=== PATIENT | female | born 1965 | race Caucasian/White ===

== ENCOUNTER → 2023-11-28 12:11 | Outpatient (REF) | payer BC, SELFPAY | LOC: WDC 12:11 | PROVIDERS: ATTENDING PHYSICIAN Nurse Practitioner Adult Health | DX: Z12.31 Encounter for screening mammogram for malignant neoplasm of breast (principal) | CPT/HCPCS: 77063; 77067 ==

== ENCOUNTER 2024-09-28 17:56 | Emergency (ER) | payer BC, SELFPAY ==
[2024-09-28 18:06] VITALS: BP 135/101
[2024-09-28 18:20] LABS: % Basophils 0.7 % (0-2); % Eosinophils 1.7 % (0-6); % Immature Granulocytes 0.1 % (0-0.5); % Lymphocytes 36.7 % (20.5-51.1); % Monocytes 9.3 % (1.7-9.3); % Neutrophils 51.5 % (42.2-75.2); Absolute Basophils 0.1 10^3/uL (0-0.2); Absolute Eosinophils 0.2 10^3/uL (0-0.7); Absolute Lymphocytes 3.5 10^3/uL (1.2-3.4); Absolute Monocytes 0.9 10^3/uL (0.1-0.6); Absolute Neutrophils 4.9 10^3/uL (1.4-6.5); Hematocrit 38.1 % (37.0-47.0); Mean Corp Hgb Conc. 34.1 g/dL (33.0-37.0); Mean Corpuscular Hgb 32.3 pg (27.0-31.0); Mean Corpuscular Volume 94.5 fL (81.0-99.0); Mean Platelet Volume 9.8 fL (7.4-10.4); Nucleated Red Blood Cells % 0 %; Platelet Count 268 10^3/uL (130-400); Red Blood Cell Count 4.03 10^6/uL (4.20-5.40); Red Cell Dist. Width 11.9 % (11.5-14.5); White Blood Cell Count 9.4 10^3/uL (4.8-10.8)
[2024-09-28 18:43] LABS: Troponin I 0.015 ng/ml
[2024-09-28 18:45] LABS: ALT (SGPT) 27 U/L (0-35); AST (SGOT) 29 U/L (14-36); Albumin 4.5 g/dl (3.5-5.0); Alkaline Phosphatase 75 U/L (38-126); Blood Urea Nitrogen 22 mg/dl (7-17); Carbon Dioxide 26 mmol/L (22-30); Chloride 110 mmol/L (98-107); Glucose 107 mg/dl (70-99); Lipase 154 U/L (23-300); Potassium 4.2 mmol/L (3.5-5.1); Sodium 142 mmol/L (135-145); Total Bilirubin 0.4 mg/dl (0.2-1.3); Total Protein 7.4 g/dl (6.3-8.2); eGFR > 60.00
--- NOTE | 2024-09-28 21:43 | ED.GENMED ---
History of Present Illness
General
Chief Complaint: Chest Pain
Source: patient
Exam Limitations: none
Time Seen by Provider: 09/28/24 21:35
History of Present Illness
History of Present Illness:
See MDM
Past History
Past History
ED Past Medical History: GERD and Other (Psoriatic arthritis)
ED Past Surgical History: None
Social History
Tobacco: Non-smoker
Personal:
Living: with family
Family History
Family History: Other (Mother with diverticulitis)
Phy Exam
Physical Exam
Physical Exam:
See MDM
Scores
Heart Score for Chest Pain Patients
STEMI patient?: No
History: Slightly or Non-Suspicious
ECG: Normal
Age: >45 - <65 years
Risk Factors: 1 or 2 Risk Factors
Troponin: </= Normal Limit
Heart Score for Chest Pain Patients: 2
Heart Score Risk: 2.5% MACE over next 6 weeks
Course
Orders/Labs/Results
Orders:
Orders
09/28/24 17:57
EKG [Electrocardiogram (*1)] Urgent
Reason for Study: Chest Pain
EKG- Treatment ONCE
09/28/24 18:14
Complete Blood Count/With Diff Urgent
Comprehensive Metabolic Panel Urgent
Lipase Urgent
Troponin I Urgent
09/28/24 21:43
CR Chest - 2 Views Urgent
Comment:
Reason For Exam: left side chest pain
Abnormal Lab Results
09/28/24
18:14
RBC 4.03 L 10^6/uL
(4.20-5.40)
MCH 32.3 H pg
(27.0-31.0)
Absolute Lymphs (auto) 3.5 H 10^3/uL
(1.2-3.4)
Absolute Monos (auto) 0.9 H 10^3/uL
(0.1-0.6)
Chloride 110 H mmol/L
(98-107)
BUN 22 H mg/dl
(7-17)
Glucose 107 H mg/dl
(70-99)
09/28/24 18:14
09/28/24 18:14
Vital Signs
Initial and Last Documented VS:
Initial Vital Signs
Temp Pulse Resp BP Pulse Ox
98.3 F 68 18 135/101 100
09/28/24 18:06 09/28/24 18:06 09/28/24 18:06 09/28/24 18:06 09/28/24 18:06
Last Documented Vital Signs
Temp Pulse Resp BP Pulse Ox
98.3 F 61 14 159/91 98
09/28/24 18:06 09/28/24 22:45 09/28/24 22:45 09/28/24 22:19 09/28/24 22:45
MDM/Problems Addressed
Differential Diagnosis Includes:
HPI and MDM Narrative:
59-year-old female presenting with resolved chest pain. Patient states she woke up and noticed left-sided chest discomfort. It lasted for several hours. It then came back later in the day for another several hour episode. She denies any
exertional symptoms. She does have a strong family history of heart disease. Currently, she is chest pain-free. Blood work and EKG done prior to my assessment. EKG negative and troponin negative. Given duration of symptoms with negative
troponin, doubt ACS.
Will obtain x-ray
Physical exam
General: Well appearing and non-toxic
HEENT: protecting airway
Neck: appears supple
CV: No evidence of cyanosis. Regular rate and rhythm
Resp: No accessory muscle use. Lungs clear
Abd: Non-distended
Extremities: No deformities. No leg edema
Neuro: alert
Psych: Normal affect
Skin: Intact
Problems Addressed including Acute and Chronic Conditions affecting care:
1. Resolved chest pain
Acuity: acute
Prognosis: stable
Details: Given duration of symptoms with negative troponin EKG, doubt ACS. However, we did discuss outpatient cardiology follow-up. Will obtain chest x-ray
Updates
Chest x-ray clear. Patient remains well-appearing and nontoxic and feels comfortable going home. Will place on cardiac callback tracker
Differential Diagnosis (but not limited to): Noncardiac chest pain, viral syndrome, ACS
Testing considered: D-dimer but she is neither tachycardic nor hypoxic
Drug therapy (if applicable): OTC meds, please see d/c instruction regarding Rx drugs
Amount and/or Complexity of Data Reviewed
Clinical info obtained from: Patient
External data reviewed: N/A
Labs I independently reviewed (but not limited to): Troponin normal
Radiology: X-ray independently reviewed: Chest x-ray clear
Pulse Ox: not hypoxic
EKG independently reviewed: Sinus rhythm, normal axis, no STEMI
Nursing Unit Clerk: Sinus rhythm
Critical Care: N/A
Risk of Complication:
Social Determinants of health: Good social support
Discussed with other providers: N/A
Escalation of Care includes Admit/Obs: After being observed in the Emergency Department, pt stable for discharge.
Occasional wrong word or 'sound a like' substitutions may have occurred due to the inherent limitations of voice recognition software. Read the chart carefully and recognize, using context, where substitutions have occurred.
*Critical Care Note
Total Time (30-74mins, 75-104mins- exclusive of procedures): Not Applicable
ED Attending Note
-
Portions of this chart may have been created with voice recognition software.� Occasional wrong word or��sound alike� substitutions may have occurred due to the inherent limitations of voice recognition software.
Discharge Plan
Departure
Discharge Problem:
Chest discomfort
Instructions: Chest Pain DCA Follow Up
Prescriptions:
No Action
multivitamin [Daily Vitamin] 1 EACH tablet
1 ea PO DAILY
docosahexaenoic acid-epa 1 CAP capsule
1 cap PO .NOON
Ashwagandha Root Extract
2 cap PO HS
famotidine [Acid-Pep] 20 MG tablet
20 mg PO DAILY
Pregnanalone
30 mg PO DAILY
Red Yeast Rice
1 dose PO DAILY
Vitamin D3:
1 cap PO DAILY
Zinc
1 tab PO DAILY
Referrals:
Chuck Smyth DO [Family Provider] -
Activity Restrictions/Additional Instructions:
Please return for any worsening symptoms.
You may return at any time if you have further concerns.
Please follow up with your doctor at the first available appointment, preferably this week.
You were placed on the cardiac callback tracker. Someone from their office should call you in the next few days. If you do not hear from them in the next few days, please give them a call.
Thank you for choosing [facility].
Interventions
Interventions:
*Risk Screen - Suicide Last Done: 09/28/24 18:06
*General Assessment Last Done: 09/28/24 18:06
*Neglect/Abuse Screening Last Done: 09/28/24 18:06
*ED- Fall Risk Assessment Last Done: 09/28/24 22:27
*ED COVID-19 Vaccine History Last Done: 09/28/24 22:27
ED- Cardiac Assessment Last Done: 09/28/24 22:26
Discharge Date and Time
Print Language: BHUTANESE
[2024-09-28 22:19] VITALS: BP 159/91
== END 2024-09-28 23:36 | disposition home or self-care (01) ==
LOC: EMR 17:56
PROVIDERS: Emergency Medicine; EMERGENCY PHYSICIAN Student in an Organized Health Care Education/Training Program; FAMILY PHYSICIAN Family Medicine
DX: R07.89 Other chest pain (principal); Z83.79 Family history of other diseases of the digestive system; K21.9 Gastro-esophageal reflux disease without esophagitis; L40.50 Arthropathic psoriasis, unspecified
CPT/HCPCS: 99283; 71046; 80053; 83690; 84484; 85025; 93005

== ENCOUNTER → 2024-11-29 12:25 | Outpatient (REF) | payer BC, SELFPAY | LOC: WDC 12:25 | PROVIDERS: ATTENDING PHYSICIAN Nurse Practitioner Adult Health | DX: Z12.31 Encounter for screening mammogram for malignant neoplasm of breast (principal) | CPT/HCPCS: 77063; 77067 ==